=== PATIENT | female | born 1935 | race Caucasian/White ===

== ENCOUNTER → 2016-08-05 | Outpatient (CLI) | payer OTHER ==
--- NOTE | ~2016-08-05 | MY11 ---
[facility] A Service of [facility] RADIOLOGY TEXT RESULTS PATIENT: HORACIO BAY LOCATION: [facility] : 39 UNIT #: [id number] AGE: [address]: Yair Quiroz MD SEX: F ORDER DR: [id number] [facility] [address] [place], [place] [address] [id number] O MR#: [id number] Acc #: [id number] NAME: HORACIO BAY : 1935 SEX: F STUDY DATE/TIME: 08/05/2016 9:11 UNIT: [facility] ROOM: STUDY DESCRIPTION: MY Mammogram Screening Dig Hany Attending Physician: Yair Quiroz M.D. Referring Physician: Yair Quiroz M.D. Ordering Physician: Yair Quiroz M.D. Primary Care Physician: Yair Quiroz M.D. MEDICAL IMAGING REPORT This report is preliminary unless electronic signature is present EXAM Digital screening mammogram 08/05/2016 HISTORY 80-year-old woman, 3 prior breast biopsies with single biopsy scar mid outer right breast and 2 biopsy scars left breast upper central and upper outer quadrant. No risk elevation. Annual screen. COMPARISON 11/21/2009, 07/19/2013. FINDINGS Digital imaging of each breast was completed utilizing screening protocol. Single skin marker placed on the right with 2 skin markers on the left. Review includes FDA-approved CAD device. Breast parenchyma remains somewhat dense with residual fibronodular pattern subareolar anterior third locations of each breast. There is some dominance on the right which is stable. Benign calcifications in the right breast are stable. I see no suspicious mass. There are no interval occurring microcalcifications and no suspicious architectural deformity. IMPRESSION Stable benign mammogram. Annual screening recommended. Patients over the age of 40 are entered into a reminder system with target due date for the next mammogram. A result letter will also be sent to the patient. BIRADS: 2 Benign finding Dictated by... Kwadwo Lazar M.D. [facility] A Service of [facility] RADIOLOGY TEXT RESULTS PATIENT: HORACIO BAY LOCATION: [facility] : 39 UNIT #: [id number] AGE: [address]: Yair Quiroz MD SEX: F ORDER DR: THIS IS AN ELECTRONICALLY VERIFIED REPORT Kwadwo Lazar M.D. at 08/05/2016 2:10 PM Kym TD: 08/05/2016 12:29 JOB #: [id number] MEDICAL IMAGING REPORT Page 1 of 1 COPY
== END | disposition home or self-care (01) ==
LOC: CWCC 08:45
DX: Z12.31 Encounter for screening mammogram for malignant neoplasm of breast (principal); Z98.890 Other specified postprocedural states
CPT/HCPCS: G0202